=== PATIENT | female | born 1975 | race Caucasian/White ===

== ENCOUNTER → 2021-03-13 | Outpatient (CLI) | payer BC | LOC: CT 14:08 | DX: R10.84 Generalized abdominal pain (principal); K44.9 Diaphragmatic hernia without obstruction or gangrene; K59.00 Constipation, unspecified | CPT/HCPCS: Q9967 ==

== ENCOUNTER → 2021-09-25 | Outpatient (CLI) | payer BC | LOC: EXRD 09:50 | DX: R10.11 Right upper quadrant pain (principal); Z90.49 Acquired absence of other specified parts of digestive tract | CPT/HCPCS: 76705 ==

== ENCOUNTER → 2022-04-01 | Outpatient (CLI) | payer BC | LOC: CT 09:00 | DX: R10.9 Unspecified abdominal pain (principal) | CPT/HCPCS: Q9967 ==